=== PATIENT | male | born 2000 | race Caucasian/White ===

== ENCOUNTER 2023-10-04 09:43 | Outpatient (REF) | payer OTHER, SELFPAY ==
[2023-10-04 10:23] LABS: MANUAL DIFF FLAG NO
[2023-10-04 10:31] LABS: Basophils Percent Auto 0.4 % (0-2); Eosinophils Absolute Auto 0.3 X10*3/uL (0.0-0.4); Eosinophils Percent Auto 4.4 % (0-4); Hematocrit 45.8 % (42.0-52.0); Hemoglobin 15.2 g/dl (14.0-18.0); Imm Gran Abs Auto 0.06 X10*3/uL (0.00-0.03); Imm Gran Pct Auto 0.8 % (0.0-0.4); Lymphocytes Percent Auto 40.9 % (20-40); Mean Corpuscular HGB Conc 33.2 g/dl (31.0-36.0); Mean Corpuscular Hemoglobin 27.1 pg (27.0-33.0); Mean Corpuscular Volume 81.8 fL (80.0-98.0); Mean Platelet Volume 9.6 fL (9.4-12.4); Monocytes Absolute Auto 0.5 X10*3/uL (0.1-1.2); Monocytes Percent Auto 6.9 % (2-11); Neutrophils Absolute Auto 3.4 x10*3/uL (2.0-8.3); Neutrophils Percent Auto 46.6 % (45-73); Platelet Count 265 X10*3/uL (160-400); Red Cell Distribution Width 13.4 % (11.0-16.0); White Blood Count 7.2 X10*3/uL (4.8-10.8)
[2023-10-04 10:57] LABS: Alanine Aminotransferase 50 U/L (0-40); Albumin Level 4.7 g/dL (3.5-5.0); Alkaline Phosphatase 72 U/L (39-117); Anion Gap 11 (12-20); Aspartate Amino Transferase 25 U/L (5-37); Bilirubin Total 0.3 mg/dL (0.0-1.0); Blood Urea Nitrogen 15 mg/dL (9-16); Calcium 10.1 mg/dL (8.4-10.2); Carbon Dioxide 28 mmol/L (22-29); Chloride 106 mmol/L (96-108); Cholesterol 151 mg/dL (<200); Estimated Glomerular Filt Rate > 60; Glucose Fasting 99 mg/dL (60-99); HDL Cholesterol 38 mg/dL (>40); LDL Cholesterol Calculated 91 mg/dL (<100); Potassium 3.9 mmol/L (3.3-5.1); Sodium 141 mmol/L (135-145); Total Protein 7.8 g/dL (6.5-8.0); Triglycerides 112 mg/dL (<150)
[2023-10-04 11:12] LABS: Thyroid Stimulating Hormone 2.44 uIU/mL (0.32-4.0)
== END 2023-10-04 09:44 | disposition home or self-care (01) ==
LOC: HO.10HDL 09:43
PROVIDERS: Visit Provider Internal Medicine
DX: D64.9 Anemia, unspecified (principal)
CPT/HCPCS: 36415; 80053; 80061; 84443; 85025

== ENCOUNTER 2023-10-04 11:06 | Outpatient (AMB) | payer OTHER, SELFPAY ==
[2023-10-04 11:09] VITALS: BP 122/82; PULSE 70; O2SAT 98; BMI 24.2
--- NOTE | 2023-10-04 11:09 | MHC.PC.OV ---
Vital Signs 10/04/23 11:09 Height 5 ft 4 in Weight 141 lb BMI 24.2 BP 122/82 Blood Pressure Location Lt brachial Position Sitting Pulse 70 Pulse Source Pulse Oximeter Pulse Oximetry (%) 98 Oxygen Delivery Method Room Air Intake Visit Reasons: Med review Hair And Makeup Designer Required: No Video Game Designer: Present Accompanied by: Mother Allergies No Known Allergies Allergy (Verified 10/04/23 11:10) Medication List - Last Reconciled 10/04/23 by Dionicio Mcneil MD Vyvanse (lisdexamfetamine) 40 mg PO DAILY NS Tobacco use date assessed: 10/04/23 Dental Screening Dental Screen Date: 10/04/23 Did you have a dental visit in the last 12 months?: No Did you have a dental problem in the last 6 months where you did not have access to dental care?: No Was dental information given to patient?: Patient has dentist HPI Med review HPI Details cognitive delar on rx; doing well on rx PFSH Medical History (Updated 03/01/23 @ 10:22 by Dionicio Mcneil MD) Cognitive decline Cognitive developmental delay Surgical History History of surgery Family History Father Prediabetes Mother Arthritis Maternal Grandmother No problems noted. Maternal Grandfather Hypertension CVD (cardiovascular disease) Myocardial infarction Paternal Grandmother No problems noted. Paternal Grandfather CVD (cardiovascular disease) Hypertension Brother In good health Other Mental health disorder Social History Housing: House Alcohol intake: never Patient Tobacco Use Status: Never used Tobacco e-Cigarette/Vaping Use: Never Used Second Hand Smoke Exposure: No service: No Current occupational status: disabled Cognitive needs: No Hearing needs: No Vision needs: No Questionnaire PHQ-9 Over the last 2 weeks, how often have you been bothered by any of the following problems? 1. Little interest or pleasure in doing things: not at all 2. Feeling down, depressed, or hopeless: not at all 3. Trouble falling or staying asleep, or sleeping too much: not at all 4. Feeling tired or having little energy: not at all 5. Poor appetite or overeating: not at all 6. Feeling bad about yourself - or that you are a failure or have let yourself or your family down: not at all 7. Trouble concentrating on things, such as reading the newspaper or watching television: not at all 8. Moving or speaking so slowly that other people could have noticed. Or the opposite - being so fidgety or restless that you have been moving around a lot more than usual: not at all 9. Thoughts that you would be better off or of hurting yourself in some way: not at all Total score: 0 Depression Screening Interpretation: Negative Depression Screening Done: Yes 29111 - PHQ-9 Billing: Yes Source: Developed by Drs. Neo Neville, Deb Wagner, Arpan Galan and colleagues, with an educational dorene from [employer]. Thrive Questionnaire Date Thrive assessed: 10/04/23 I am a: Patient What is your living situation today?: I have a steady place to live Within the past 12 months, did the food you bought not last and you didn't have the money to get more?: Never true Within the past 12 months, did you worry whether your food would run out before you got money to buy more?: Never true Do you have trouble paying for medicines?: No Do you have trouble getting transportation to medical appointments?: No Do you have trouble paying your heating and electricity bill?: No Do you have trouble taking care of your child, family member or friend?: No Do you have trouble with day-to-day activities such as bathing, preparing meals, shopping, managing finances, etc.?: No Are you currently unemployed and looking for a job?: No Are you interested in more education?: No Please select the resources that you would like help with: None AUDIT C Alcohol Use Questionnaire (AUDIT-C) Score Reviewed/Action Taken: Yes JUAN-7 AMB Questionnaire JUAN-7 Date JUAN - 7 assessed: 10/04/23 Feeling nervous, anxious, or on edge: 0 = Not at all Not being able to stop or control worryin = Not at all Worrying too much about different things: 0 = Not at all Trouble relaxin = Not at all Being so restless that it is hard to sit still: 0 = Not at all Becoming easily annoyed or irritable: 0 = Not at all Feeling afraid as if something awful might happen: 0 = Not at all Total JUAN-7 score (0-4 normal; 5-9 mild; 10-14 moderate; 15-21 severe): 0 Source: Developed by Drs. Neo Neville, Deb Wagner, Arpan Galan and colleagues, with an educational dorene from [employer]. JUAN-7 Assessment Billing JUAN-7 Assessment Tool: JUAN-7 Assessment 22760 Review of Systems Const Denies chills, Denies headache(s) and Denies weight loss ENT Denies headache(s) Card Denies chest pain, Denies syncope, Denies irregular heart rhythm and Denies dyspnea Resp Denies chest congestion, Denies cough and Denies dyspnea GI Denies abdominal pain, Denies change in stool character, Denies nausea and Denies vomiting Musc Denies deformity and Denies joint swelling Neuro Denies syncope and Denies headache(s) Physical exam (Primary Care) Vital Signs: Last Vital Signs Pulse 70 10/04/23 11:09 BP 122/82 10/04/23 11:09 Pulse Ox 98 10/04/23 11:09 Oxygen Delivery Method Room Air 10/04/23 11:09 BMI result Body Mass Index 24.2 Tobacco/Smoking Status: Tobacco use Status Tobacco use date assessed 10/04/23 10/04/23 11:11 Patient Tobacco Use Status Never used Tobacco 10/04/23 11:11 e-Cigarette/Vaping Use Never Used 10/04/23 11:11 PHQ-9: PHQ-9 Score PHQ-9: Total score 0 10/04/23 11:16 Depression Screening Interpretation: Negative Thrive Assessment: Date of Thrive Assessment Date Thrive assessed 10/04/23 10/04/23 11:11 Const General: cooperative, comfortable, no acute distress and alert Neck Neck: Yes no lymphadenopathy Thyroid: Thyroid normal Resp Effort & Inspection: normal respiratory effort Auscultation: clear to auscultation bilaterally Percussion: percussion normal Cardio Jugular venous distension: no JVD Palpation: normal PMI Rate: regular rate Rhythm: regular rhythm Heart sounds: S1 normal heart sound present and S2 normal heart sound present GI Inspection: Yes normal to inspection Palpation (GI): No hepatosplenomegaly present Skin General skin exam: no rashes or lesions noted Extrem General: Yes no clubbing, cyanosis or edema Assessment and Plan Assessment & Plan (1) Cognitive developmental delay: Code(s): F81.9 - Developmental disorder of scholastic skills, unspecified Medications: Refilled Vyvanse (lisdexamfetamine) 40 mg PO DAILY 30 caps 0RF NS Coding Level of Care Code Est Pt Level 3 (40069) Diagnoses Cognitive developmental delay F81.9 Additional Codes JUAN-7 Assessment Billing - JUAN-7 Assessment Tool: JUAN-7 Assessment 37946 ([id number])
== END 2023-10-04 11:39 | disposition home or self-care (01) ==
PROVIDERS: PCP Internal Medicine; Visit Provider Internal Medicine
DX: R41.89 Other symptoms and signs involving cognitive functions and awareness (principal)
CPT/HCPCS: 99213

== ENCOUNTER 2024-03-06 08:55 | Outpatient (AMB) | payer OTHER, SELFPAY ==
[2024-03-06 08:55] VITALS: BP 112/70; PULSE 65; O2SAT 98; BMI 23.7
--- NOTE | 2024-03-06 08:55 | A.OFFPC_ITS ---
Vital Signs 03/06/24 08:55 Height 5 ft 4 in Weight 138 lb BMI 23.7 BP 112/70 Blood Pressure Location Lt brachial Position Sitting Pulse 65 Pulse Source Pulse Oximeter Pulse Oximetry (%) 98 Oxygen Delivery Method Room Air Intake Visit Reasons: Annual Exam Building Guard Deputy Sheriff Required: No Coating Manager: Not Required per policy Accompanied by: Self / Same As Patient Allergies No Known Allergies Allergy (Verified 03/06/24 08:56) Medication List - Last Reconciled 03/06/24 by Dionicio Mcneil MD Vyvanse (lisdexamfetamine) 40 mg PO DAILY NS Tobacco use date assessed: 10/04/23 Dental Screening Dental Screen Date: 10/04/23 HPI Annual Exam HPI Details on vyvance for his cognitive delay and doing well [facility] Medical History (Updated 03/01/23 @ 10:22 by Dionicio Mcneil MD) Cognitive decline Cognitive developmental delay Surgical History History of surgery Family History Father Prediabetes Mother Arthritis Maternal Grandmother No problems noted. Maternal Grandfather Hypertension CVD (cardiovascular disease) Myocardial infarction Paternal Grandmother No problems noted. Paternal Grandfather CVD (cardiovascular disease) Hypertension Brother In good health Other Mental health disorder Social History Housing: House Alcohol intake: never Patient Tobacco Use Status: Never used Tobacco e-Cigarette/Vaping Use: Never Used Second Hand Smoke Exposure: No service: No Current occupational status: disabled Cognitive needs: No Hearing needs: No Vision needs: No Questionnaire Thrive Questionnaire Date Thrive assessed: 10/04/23 JUAN-7 AMB Questionnaire JUAN-7 Date JUAN - 7 assessed: 10/04/23 Source: Developed by Drs. Neo Neville, Deb Wagner, Arpan Galan and colleagues, with an educational dorene from [employer]. Review of Systems Const Denies chills, Denies fatigue, Denies headache(s) and Denies weight loss Eyes Denies change in vision, Denies diplopia and Denies eye pain ENT Denies vertigo, Denies dizziness, Denies headache(s) and Denies nasal discharge Card Denies chest pain, Denies rapid heart rate and Denies dyspnea on exertion Resp Denies chest congestion, Denies cough, Denies pain with cough and Denies dyspnea on exertion GI Denies abdominal pain, Denies hematochezia and Denies change in bowel habits Musc Denies myalgias, Denies arthralgias and Denies joint swelling Skin/Breast Denies lesions and Denies unusual bruising Neuro Denies vertigo, Denies dizziness, Denies headache(s) and Denies focal weakness Endo Denies fatigue Physical exam (Primary Care) Vital Signs: Last Vital Signs Pulse 65 03/06/24 08:55 BP 112/70 03/06/24 08:55 Pulse Ox 98 03/06/24 08:55 Oxygen Delivery Method Room Air 03/06/24 08:55 BMI result Body Mass Index 23.7 Tobacco/Smoking Status: Tobacco use Status Tobacco use date assessed 10/04/23 03/06/24 08:59 Patient Tobacco Use Status Never used Tobacco 03/06/24 08:59 e-Cigarette/Vaping Use Never Used 03/06/24 08:59 Thrive Assessment: Date of Thrive Assessment Date Thrive assessed 10/04/23 03/06/24 08:59 Const General: cooperative, healthy appearing and no acute distress Orientation/consciousness: oriented to person, oriented to place and oriented to time [facility] Head: Yes normal to inspection, Yes normocephalic and Yes atraumatic Mouth: Normal oral and palatal mucosa present and tongue normal Throat: Yes posterior oropharynx normal and Yes uvula midline Eyes General: appearance normal, both eyes and all related structures Neck Neck: Yes normal visual inspection, Yes full ROM and Yes no lymphadenopathy Thyroid: Thyroid normal Carotids: normal carotid upstroke Chest Chest palpation & inspection: normal inspection of the chest Resp Effort & Inspection: normal respiratory effort and able to speak in complete sentences Auscultation: clear to auscultation bilaterally Cardio Jugular venous distension: no JVD Palpation: normal PMI Rate: regular rate Rhythm: regular rhythm Heart sounds: S1 normal heart sound present and S2 normal heart sound present GI Inspection: Yes normal to inspection Palpation (GI): Soft to palpation and No hepatosplenomegaly present Auscultation: normal bowel sounds General: Yes no CVA tenderness Back/Spine/Pelvis Back: no CVA tenderness Skin General skin exam: no rashes or lesions noted Neuro General: oriented to person, oriented to place and oriented to time Extrem General: Yes normal to inspection and Yes full ROM Assessment and Plan Assessment & Plan (1) Physical exam: Code(s): Z00.00 - Encounter for general adult medical examination without abnormal findings Plan: stable (2) Cognitive developmental delay: Code(s): F81.9 - Developmental disorder of scholastic skills, unspecified Plan: same rx; stab;le Medications: Refilled Vyvanse (lisdexamfetamine) 40 mg PO DAILY 30 caps 0RF NS Coding Level of Care Code Est Pt Prev Care 18-39y(57454) Diagnoses Physical exam Z00.00 Cognitive developmental delay F81.9
== END 2024-03-06 09:12 | disposition home or self-care (01) ==
PROVIDERS: PCP Internal Medicine; Visit Provider Internal Medicine
DX: Z00.00 Encounter for general adult medical examination without abnormal findings (principal); F81.9 Developmental disorder of scholastic skills, unspecified
CPT/HCPCS: 99395

== ENCOUNTER 2024-09-07 09:25 | Outpatient (AMB) | payer OTHER, SELFPAY ==
--- NOTE | 2024-09-07 09:28 | A.OFFPC_ITS ---
Vital Signs 09/07/24 09:29 Height 5 ft 4 in Weight 134 lb 2 oz BMI 23.0 BP 110/62 Blood Pressure Location Lt brachial Position Sitting Pulse 88 Pulse Source Pulse Oximeter Pulse Oximetry (%) 97 Oxygen Delivery Method Room Air Intake Visit Reasons: 6 month f/u Intake Note: Patient is here to follow up on Cognitive delay. Business Continuity Consultant Required: No Engineering Instructor: Present Accompanied by: Mother Allergies No Known Allergies Allergy (Verified 09/07/24 09:29) Medication List - Last Reconciled 09/07/24 by Dionicio Mcneil MD Vyvanse (lisdexamfetamine) 40 mg PO DAILY NS Tobacco use date assessed: 09/07/24 Dental Screening Dental Screen Date: 10/04/23 HPI 6 month f/u HPI Details has cognitive delay on rx and doing well; due for labs [facility] Medical History (Updated 03/01/23 @ 10:22 by Dionicio Mcneil MD) Cognitive decline Cognitive developmental delay Surgical History History of surgery Family History Father Prediabetes Mother Arthritis Maternal Grandmother No problems noted. Maternal Grandfather Hypertension CVD (cardiovascular disease) Myocardial infarction Paternal Grandmother No problems noted. Paternal Grandfather CVD (cardiovascular disease) Hypertension Brother In good health Other Mental health disorder Social History Housing: House Alcohol intake: never Patient Tobacco Use Status: Never used Tobacco e-Cigarette/Vaping Use: Never Used Second Hand Smoke Exposure: No service: No Current occupational status: disabled Cognitive needs: No Hearing needs: No Vision needs: No Questionnaire Thrive Questionnaire Date Thrive assessed: 10/04/23 JUAN-7 AMB Questionnaire JUAN-7 Date JUAN - 7 assessed: 10/04/23 Source: Developed by Drs. Neo Neville, Deb Wagner, Arpan Galan and colleagues, with an educational dorene from [email or web address]. Review of Systems Const Denies chills, Denies headache(s) and Denies weight loss ENT Denies headache(s) Card Denies chest pain, Denies syncope, Denies irregular heart rhythm and Denies dyspnea Resp Denies chest congestion, Denies cough and Denies dyspnea GI Denies abdominal pain, Denies change in stool character, Denies nausea and Denies vomiting Musc Denies deformity and Denies joint swelling Neuro Denies syncope and Denies headache(s) Physical exam (Primary Care) Vital Signs: Last Vital Signs Pulse 88 09/07/24 09:29 BP 110/62 09/07/24 09:29 Pulse Ox 97 09/07/24 09:29 Oxygen Delivery Method Room Air 09/07/24 09:29 BMI result Body Mass Index 23.0 Tobacco/Smoking Status: Tobacco use Status Tobacco use date assessed 09/07/24 09/07/24 09:36 Patient Tobacco Use Status Never used Tobacco 09/07/24 09:36 e-Cigarette/Vaping Use Never Used 09/07/24 09:36 Thrive Assessment: Date of Thrive Assessment Date Thrive assessed 10/04/23 09/07/24 09:36 Const General: cooperative, comfortable, no acute distress and alert Neck Neck: Yes no lymphadenopathy Thyroid: Thyroid normal Resp Effort & Inspection: normal respiratory effort Auscultation: clear to auscultation bilaterally Percussion: percussion normal Cardio Jugular venous distension: no JVD Palpation: normal PMI Rate: regular rate Rhythm: regular rhythm Heart sounds: S1 normal heart sound present and S2 normal heart sound present GI Inspection: Yes normal to inspection Palpation (GI): No hepatosplenomegaly present Skin General skin exam: no rashes or lesions noted Extrem General: Yes no clubbing, cyanosis or edema Office Procedures Flu Questionnaire Does the patient have a severe egg allergy?: No Does the patient have severe life threatening allergies?: No Does the patient have a fever or illness today?: No Has the patient ever had Guillain-[place] Syndrome?: No Has the patient ever had any past reaction to a flu shot?: No Immunizations Fluarix Triv [id number] (PF) 45 mcg (15 mcg x 3)/0.5 mL IM syringe Performing Provider: Dionicio Mcneil MD Performing Location: [facility] Administered by: Jacqueline Gavin LPN on 09/07/24 09:49 Dose Route Admin Location Dispensed Lot Number Expiration Date [facility] Medical Education Coordinator 0.5 mL IM Left Deltoid 0.5 mL [id number] 03/19/25 07116-369-95 [employer] VIS Given Date VIS Provided VIS Publication Date 09/07/24 Single Vaccine 21 Eligibility Eligibility Date Funding Source Not [facility] Eligible 09/07/24 Private Coding Level of Care Code Est Pt Level 3 (35990) Diagnoses Cognitive developmental delay F81.9 Assessment & Plan Assessment & Plan (1) Cognitive developmental delay: Code(s): F81.9 - Developmental disorder of scholastic skills, unspecified Category: Medical Plan: stable; same rx Orders: Orders Lipid Panel Today Z13.220 - Encounter for screening for lipoid disorders Complete Blood Count Auto Diff Today Z13.0 - Encounter for screening for diseases of the blood and blood-forming organs and certain disorders involving the immune mechanism Comprehensive Allen. Panel Fast Today Z13.9 - Encounter for screening, unspecified Thyroid Stimulating Hormone Today Z13.29 - Encounter for screening for other suspected endocrine disorder Influenza [id number] Immunization Today Z23 - Encounter for immunization
[2024-09-07 09:29] VITALS: BP 110/62; PULSE 88; O2SAT 97; BMI 23.0
== END 2024-09-07 09:51 | disposition home or self-care (01) ==
PROVIDERS: PCP Internal Medicine; Visit Provider Internal Medicine
DX: Z23 Encounter for immunization (principal); F81.9 Developmental disorder of scholastic skills, unspecified

== ENCOUNTER → 2024-09-07 09:25 | Outpatient (BNVA) | payer OTHER, SELFPAY | PROVIDERS: PCP Internal Medicine; Visit Provider Internal Medicine | DX: F81.9 Developmental disorder of scholastic skills, unspecified (principal); Z23 Encounter for immunization | CPT/HCPCS: 90471; 90656; 99212 ==